=== PATIENT | male | born 1935 | race Caucasian/White ===

== ENCOUNTER 2019-02-05 07:22 | Day surgery (SDC) | payer OTHER ==
[2019-02-05] MEDS ORDERED: LR 1,000 ML IV ONE (07:47)
[2019-02-05] MEDS ORDERED: PROPOFOL/EMULSION 500 MG/50 ML BOTTLE IV ONE (09:18)
--- NOTE | 2019-02-05 09:19 | PDHPUP ---
History & Physical Update H&P update statement: This history and physical update is based on an assessment of the patient which was completed after admission or registration (within 24 hours), but prior to the surgery/procedure. Please see H and P from 01/24/19. Patient with iron deficiency anemia. Presents for EGD and Colon. Lungs Clear Cardiac normal s1s2 H&P update: H&P reviewed & patient examined, no change in patient's condition since H&P completed
--- NOTE | 2019-02-05 09:21 | PDANEPAE ---
ANE History of Present Illness 84 year old male for EGD and Colonoscopy for anemia. History of Hypertension. ANE Past Medical History - Cardiovascular History Hx Hypertension: Yes Hx Arrhythmias: No Hx Chest Pain: No Hx Coronary Artery / Peripheral Vascular Disease: No Hx CHF / Valvular Disease: No Hx Palpitations: No - Pulmonary History Hx COPD: No Hx Asthma/Reactive Airway Disease: No Hx Recent Upper Respiratory Infection: No Hx Oxygen in Use at Home: No Hx Sleep Apnea: No Sleep Apnea Screening Result - Last Documented: Positive - Neurologic History Hx Cerebrovascular Accident: No Hx Seizures: No Hx Dementia: No - Endocrine History Hx Diabetes: No - Renal History Hx Renal Disorders: Yes Renal History Comment: CKD stage 3 - Liver History Hx Hepatic Disorders: No - Neurological & Psychiatric Hx Hx Neurological and Psychiatric Disorders: No - Cancer History Hx Cancer: Yes Cancer History Comment: skin cancer - Congenital Disorder History Hx Congenital Disorders: No - GI History Hx Gastrointestinal Disorders: Yes Gastrointestinal History Comment: stomach discomfort on left side,. constipation - Other Health History Other Health History: dry skin. anemia. left side back missing teeth - Chronic Pain History Chronic Pain: Yes (lower back) - Surgical History Prior Surgeries: cataract sx 2018. egd 8 yrs ago ANE Review of Systems Review of systems is: negative Review of Systems: - Exercise capacity METS (RN): 4 METS ANE Patient History - Allergies Allergies/Adverse Reactions: No Known Allergies Allergy (Verified 01/25/19 15:26) - Home Medications Home Medications: Hydrochlorothiazide 01/25/19 [Last Taken 02/04/19] Lisinopril 01/25/19 [Last Taken 02/04/19] Simvastatin 01/25/19 [Last Taken 02/04/19] Desonide 0.05% Cream (*) 02/05/19 [Last Taken 02/04/19] Iron Chews 45 mg PO 02/05/19 [Last Taken 01/30/19] Tylenol 1,000 mg PO 02/05/19 [Last Taken 02/04/19] Vitamin D3 2,000 iunits PO 02/05/19 [Last Taken 01/30/19] - NPO status NPO Since - Liquids (Date): 02/05/19 NPO Since - Liquids (Time): 23:45 NPO Since - Solids (Date): 02/04/19 NPO Since - Solids (Time): 08:00 - Smoking Hx Smoking Status: Never smoked - Family Anes Hx Family Hx Anesthesia Complications: none ANE Labs/Vital Signs - Vital Signs Blood Pressure: 142/63 Heart Rate: 79 Respiratory Rate: 16 O2 Sat (%): 97 Height: 177.8 cm Weight: 68.039 kg ANE Physical Exam - Airway Neck exam: decreased ROM Mallampati Score: Class 2 Mouth exam: normal dental/mouth exam - Pulmonary Pulmonary: no respiratory distress - Cardiovascular Cardiovascular: regular rate and rhythym - ASA Status ASA Status: III ANE Anesthesia Plan Anesthesia Plan: MAC
--- NOTE | 2019-02-05 09:42 | GIREPORT ---
[facility] Surgical Services - Endoscopy Department Patient Name: Meek Samuel Procedure Date: 02/05/2019 9:21 AM Patient Type: Outpatient Attending MD/ ER Physician: Kehinde Valdez MD Procedure: Upper GI endoscopy Indications: Iron deficiency anemia Providers: Kehinde Valdez MD Medicines: Propofol per Anesthesia Complications: No immediate complications. Description of Procedure: After obtaining informed consent, the endoscope was passed under direct vision. Throughout the procedure, the patient's blood pressure, pulse, and oxygen saturations were monitored continuously. The Endoscope was intro duced through the mouth, and advanced to the second part of duodenum. The [facility] GI endoscopy was accomplished without difficulty. The patient tolerated th e procedure well. Findings: The examined esophagus was normal. The entire examined stomach was normal. The examined duodenum was normal. Biopsies for histology were taken wit h a cold forceps for evaluation of celiac disease. Estimated Blood Loss: Estimated blood loss: none. Post Op Diagnosis: - Normal esophagus. - Normal stomach. - Normal examined duodenum. Biopsied. Recommendation: - Await pathology results. - Perform a colonoscopy today. - Thank you for allowing me to participate in the care of your patient. Attending Participation: I personally performed the entire procedure. Kehinde Valdez MD Kehinde Valdez MD 02/05/2019 9:42:02 AM This report has been signed electronicallyStlizz Valdez MD Number of Addenda: 0 Note Initiated On: 02/05/2019 9:21 AM [email or web address]}
[2019-02-05] MEDS ORDERED: PHENYLEPHRINE HCL 100 MCG/ML SYR ONE (09:55)
[2019-02-05] MEDS ORDERED: fentaNYL 100 MCG/2 ML INJ IVP PRN (09:56)
[2019-02-05] MEDS ORDERED: LABETALOL HCL 5 MG/ML 20 ML MDV IVP PRN (09:56)
[2019-02-05] MEDS ORDERED: PHENYLEPHRINE HCL 100 MCG/ML SYR IVP PRN (09:56)
[2019-02-05] MEDS ORDERED: NALOXONE HCL 0.4 MG/ML INJ IVP PRN (09:56)
[2019-02-05] MEDS ORDERED: ONDANSETRON 4 MG/2 ML VIAL IVP PRN (09:56)
[2019-02-05] MEDS ORDERED: ACETAMINOPHEN 500 MG TAB PO PRN (09:56)
--- NOTE | 2019-02-05 10:05 | GIREPORT ---
[facility] Surgical Services - Endoscopy Department Patient Name: Meek Samuel Procedure Date: 02/05/2019 9:22 AM Patient Type: Outpatient Attending MD/ ER Physician: Kehinde Valdez MD Procedure: Colonoscopy Indications: Iron deficiency anemia Providers: Kehinde Valdez MD Medicines: Propofol per Anesthesia Complications: No immediate complications. Description of Procedure: After obtaining informed consent, the scope was passed under direct vis ion. Throughout the procedure, the patient's blood pressure, pulse, and oxyg en saturations were monitored continuously. The Colonoscope with irrigatio n channel was introduced through the anus and advanced to the cecum, identified by appendiceal orifice and ileocecal valve. The colonoscopy was somewhat difficult due to multiple diverticula in the colon. The patien t tolerated the procedure well. The quality of the bowel preparation was good. The ileocecal valve, appendiceal orifice, and rectum were photographed. Findings: Multiple small and large-mouthed diverticula were found in the sigmoid colon. A 10 mm polyp was found in the mid ascending colon. The polyp was sessi le. The polyp was removed with a hot snare. Resection and retrieval were complete. To prevent bleeding after the polypectomy, one hemostatic cli p was successfully placed. There was no bleeding during, or at the end, of th e procedure. The exam was otherwise without abnormality on direct and retroflexion v iews. Estimated Blood Loss: Estimated blood loss: none. Post Op Diagnosis: - Diverticulosis in the sigmoid colon. - One 10 mm polyp in the mid ascending colon, removed with a hot snare. Resected and retrieved. Clip was placed. - The examination was otherwise normal on direct and retroflexion views . Recommendation: - Patient has a contact number available for emergencies. The signs and symptoms of potential delayed complications were discussed with the pat ient. Return to normal activities tomorrow. Written discharge instructions we re provided to the patient. - High fiber diet. - Continue present medications. - Await pathology results. - No repeat colonoscopy due to age. - To visualize the small bowel, perform video capsule endoscopy. - Return to GI office after studies are complete. - Thank you for allowing me to participate in the care of your patient. Attending Participation: I personally performed the entire procedure. Kehinde Valdez MD Kehinde Valdez MD 02/05/2019 10:05:42 AM This report has been signed electronicallyKehinde Valdez MD Number of Addenda: 0 Note Initiated On: 02/05/2019 9:22 AM Total Procedure Duration Time 0 hours 14 minutes 51 seconds [email or web address]}
--- NOTE | 2019-02-05 10:19 | POSTANESTH ---
Post Anesthetic Evaluation Cardiovascular Status: Normal, Stable Respiratory Status: Normal, Stable Level of Consciousness/Mental Status: Mildly Sleepy, Arousable Pain Control: Adequate, Prn Tx Ordered Nausea/Vomiting Control: Adequate, Prn Tx Ordered Complications Possibly Related to Anesthesia: None Noted
[2019-02-05 11:09] VITALS: BP 157/68
== END 2019-02-05 11:03 | disposition home or self-care (01) ==
LOC: FSGY 07:22
PROVIDERS: ATTEND Internal Medicine Gastroenterology
PROC: 0DBK8ZX Excision of Ascending Colon, Via Natural or Artificial Opening Endoscopic, Diagnostic (ICD-10-PCS; principal; 2019-02-05 09:00)
DX: D12.2 Benign neoplasm of ascending colon (principal); K57.30 Diverticulosis of large intestine without perforation or abscess without bleeding; D50.9 Iron deficiency anemia, unspecified; E87.1 Hypo-osmolality and hyponatremia; R63.4 Abnormal weight loss; N18.3 Chronic kidney disease, stage 3 (moderate)
CPT/HCPCS: J2370; J2704

== ENCOUNTER 2019-03-05 14:09 | Day surgery (SDC) | payer OTHER ==
[2019-03-05] MEDS ORDERED: LR 1,000 ML IV ONE (14:57)
[2019-03-05 15:01] LABS: PLATELET COUNT 236 10^3/uL (150-400)
--- NOTE | 2019-03-05 15:43 | PDANEPAE ---
ANE Past Medical History - Cardiovascular History Hx Hypertension: Yes Hx Arrhythmias: No Hx Chest Pain: No Hx Coronary Artery / Peripheral Vascular Disease: No Hx CHF / Valvular Disease: No Hx Palpitations: No - Pulmonary History Hx COPD: No Hx Asthma/Reactive Airway Disease: No Hx Recent Upper Respiratory Infection: No Hx Oxygen in Use at Home: No Hx Sleep Apnea: No Sleep Apnea Screening Result - Last Documented: Positive - Neurologic History Hx Cerebrovascular Accident: No Hx Seizures: No Hx Dementia: No - Endocrine History Hx Diabetes: No - Renal History Hx Renal Disorders: No Renal History Comment: PT STATES NO KIDNEY DISEASE - Liver History Hx Hepatic Disorders: No Hepatic History Comment: POSS BILE DUCT OBSTRUCTION - Neurological & Psychiatric Hx Hx Neurological and Psychiatric Disorders: No - Cancer History Hx Cancer: No Cancer History Comment: PRECANCEROUS LESIONS - Congenital Disorder History Hx Congenital Disorders: No - GI History Hx Gastrointestinal Disorders: Yes Gastrointestinal History Comment: DISCOMFORT LEFT ABDOMINAL PAIN. constipation - Other Health History Other Health History: dry skin. anemia - TAKES IRON SUPPLEMENT. left side back missing teeth - Chronic Pain History Chronic Pain: Yes (lspinal stenosis wer back) - Surgical History Prior Surgeries: EGD 02-05-19. cataract sx 2018. egd 8 yrs ago ANE Review of Systems Review of Systems: - Exercise capacity METS (RN): 4 METS ANE Patient History - Allergies Allergies/Adverse Reactions: No Known Allergies Allergy (Verified 01/25/19 15:26) - Home Medications Home Medications: Hydrochlorothiazide 01/25/19 [Last Taken 03/04/19] Lisinopril 01/25/19 [Last Taken 03/05/19 08:00] Simvastatin 01/25/19 [Last Taken 03/04/19] Desonide 0.05% Cream (*) 02/05/19 [Last Taken 03/04/19] Iron Chews 45 mg PO 02/05/19 [Last Taken 03/02/19] Tylenol 1,000 mg PO 02/05/19 [Last Taken 03/04/19] Vitamin D3 2,000 iunits PO 02/05/19 [Last Taken 03/04/19] - NPO status NPO Since - Liquids (Date): 03/05/19 NPO Since - Liquids (Time): 08:00 NPO Since - Solids (Date): 03/04/19 NPO Since - Solids (Time): 18:00 - Smoking Hx Smoking Status: Never smoked - Family Anes Hx Family Hx Anesthesia Complications: none ANE Labs/Vital Signs - Labs Result Diagrams: 03/05/19 14:52 03/05/19 14:52 - Vital Signs Blood Pressure: 156/74 Heart Rate: 54 Respiratory Rate: 16 O2 Sat (%): 100 Height: 177.8 cm Weight: 65.771 kg
[2019-03-05] MEDS ORDERED: INDOMETHACIN 50 MG SUPP PR PRN (16:12)
--- NOTE | 2019-03-05 16:12 | PDGENHP ---
History & Physical Chief Complaint: LUQ abdominal pain/weight loss History of Present Illness: 84 year old male presents for evaluatin of weight loss and CBD dilation. He also c/o of LUQ abdominal pain. Pertinent Past, Social, Family History: PMHx: HTN, hypercholesterolemia Relevant Physical Exam: HEENT: anicteric. CV: RRR +s1s2. lungs: CTAB. Abd: soft, nt, + bs Cardiorespiratory Assessment: ASA 2
[2019-03-05] MEDS ORDERED: NS 500 ML IV SCH (16:15)
[2019-03-05] MEDS ORDERED: fentaNYL 250 MCG/5 ML INJ ONE (16:24)
[2019-03-05] MEDS ORDERED: PROPOFOL 200 MG/20 ML VIAL ONE (16:25)
[2019-03-05] MEDS ORDERED: INDOMETHACIN 50 MG SUPP PR ONE (17:00)
[2019-03-05] MEDS ORDERED: LIDOCAINE 2% 2 ML INJ ONE (17:22)
[2019-03-05] MEDS ORDERED: ONDANSETRON 4 MG/2 ML VIAL ONE (17:22)
[2019-03-05] MEDS ORDERED: ROCURONIUM 100 MG/10 ML VIAL ONE (17:22)
[2019-03-05] MEDS ORDERED: DEXAMETHASONE 4 MG/ML VIAL ONE (17:22)
[2019-03-05] MEDS ORDERED: SUGAMMADEX SODIUM 200 MG/2 ML VIAL IVP ONE (17:22)
--- NOTE | 2019-03-05 17:23 | GIREPORT ---
[facility] Surgical Services - Endoscopy Department Patient Name: Meek Samuel Procedure Date: 03/05/2019 4:15 PM Patient Type: Outpatient Attending MD/ ER Physician: Sergey Reyes MD Procedure: Upper EUS Indications: Abnormal abdominal/pelvic CT scan, Elevated liver enzymes, Abdominal pa in in the left upper quadrant, Weight loss Patient Profile: 84 year old male presents with CBD dilation, elevated LFTs (alkaline posphatase >400), LUQ abdominal pain, and significant weight loss. CT a dn MRI show no mass lesion. Providers: Sergey Reyes MD Medicines: General Anesthesia Complications: No immediate complications. Estimated blood loss: Minimal. Description of Procedure: After obtaining informed consent, the endoscope was passed under direct vision. Throughout the procedure, the patient's blood pressure, pulse, and oxygen saturations were monitored continuously. The Endosonoscope was introduced through the mouth, and advanced to the second part of duoden um. The Endoscope was introduced through the mouth, and advanced to the sec ond part of duodenum. The esophagus, stomach, and duodenum were visualized endosonographically. The upper EUS was accomplished without difficulty. The patient tolerated the procedure well. Findings: ENDOSCOPIC FINDING: : The examined esophagus was normal. Patchy mildly erythematous mucosa was found in the gastric body and in the gastric antrum. Biopsies were taken with a cold forceps for histology. A few small sessile polyps were found in the duodenal bulb. Biopsies we re taken with a cold forceps for histology. Biopsies for histology were taken with a cold forceps for evaluation of celiac disease. ENDOSONOGRAPHIC FINDING: : Pancreatic parenchymal abnormalities were noted in the entire pancreas. These consisted of hyperechoic foci. There was dilation in the common bile duct which measured up to 12 mm. 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 No masses were identified. No lymphadenopathy seen. Estimated Blood Loss: Estimated blood loss was minimal. Post Op Diagnosis: - Biopsies were taken with a cold forceps for evaluation of celiac dise ase. - Normal esophagus. - Erythematous mucosa in the gastric body and antrum. Biopsied. - A few duodenal polyps. Biopsied. - Pancreatic parenchymal abnormalities consisting of hyperechoic foci w ere noted in the entire pancreas. - There was dilation in the common bile duct which measured up to 11 mm . - Distal CBD stricture - There was no evidence of significant pathology in the visualized port ion of the liver. - Etiology? No mass lesion seen. Due to increased LFTs and possible CBD stricture, will proceed with ERCP. Recommendation: - Perform an ERCP today. - Continue present medications. - Await pathology results. - Thank you for allowing me to participate in the care of your patient. Attending Participation: I personally performed the entire procedure. Sergey Reyes MD Sergey Reyes MD 03/05/2019 5:22:55 PM This report has been signed electronicallySergey Reyes MD Number of Addenda: 0 Note Initiated On: 03/05/2019 4:15 PM [email or web address]
--- NOTE | 2019-03-05 17:30 | GIREPORT ---
[facility] Surgical Services - Endoscopy Department Patient Name: Meek Samuel Procedure Date: 03/05/2019 5:02 PM Patient Type: Outpatient Attending MD/ ER Physician: Sergey Reyes MD Procedure: ERCP Indications: Increased LFTs, CBD stricture, Abnormal imaging Patient Profile: 84 year old male presents for evaluation of increased LFTs, CBD strictu re and abnormal imaging. Providers: Sergey Reyes MD Medicines: General Anesthesia, Indomethacin 100 mg ME Complications: No immediate complications. Estimated blood loss: Minimal. Description of Procedure: After obtaining informed consent, the scope was passed under direct vis ion. Throughout the procedure, the patient's blood pressure, pulse, and oxyg en saturations were monitored continuously. The Duodenalscope was introduc ed through the mouth, and advanced to the duodenum and used to inject cont rast into the bile duct. The ERCP was accomplished without difficulty. The patient tolerated the procedure well. Findings: The freight air brake fitter film was normal. The esophagus was successfully intubated und er direct vision. The scope was advanced to a normal major papilla in the descending duodenum without detailed examination of the pharynx, larynx and associated structures, and upper GI tract. The upper GI tract was gross ly normal. A wire was passed into the biliary tree. The short-nosed tracti on sphincterotome was passed over the guidewire and the bile duct was then deeply cannulated. Contrast was injected. I personally interpreted the bile duct images. Ductal flow of contrast was adequate. Image quality was adequate. Contrast extended to the entire biliary tree. The main bile d uct was moderately dilated. The largest diameter was 12 mm. A 10 mm biliary sphincterotomy was made with a traction (standard) sphincterotome using pure cut current. The sphincterotomy oozed blood. The biliary tree was swept with a 15 mm balloon starting at the bifurcation. Sludge was swept from the duct. Estimated Blood Loss: Estimated blood loss was minimal. Post Op Diagnosis: - The entire main bile duct was moderately dilated. - A biliary sphincterotomy was performed. - No significant stricture noted. - The biliary tree was swept and sludge was found. Recommendation: - Discharge patient to home (with escort). - Continue present medications. - Clear liquid diet. - Check PSA - Follow up in office in 3 weeks. - Thank you for allowing me to participate in the care of your patient. Attending Participation: I personally performed the entire procedure. Sergey Reyes MD Sergey Reyes MD 03/05/2019 5:30:33 PM This report has been signed electronicallySergey Reyes MD Number of Addenda: 0 Note Initiated On: 03/05/2019 5:02 PM [email or web address]
[2019-03-05] MEDS ORDERED: NALOXONE HCL 0.4 MG/ML INJ IVP PRN ×2 (17:43→17:55)
[2019-03-05] MEDS ORDERED: fentaNYL 100 MCG/2 ML INJ IVP PRN (17:43)
[2019-03-05] MEDS ORDERED: ONDANSETRON 4 MG/2 ML VIAL IVP PRN (17:43)
[2019-03-05] MEDS ORDERED: LABETALOL HCL 5 MG/ML 20 ML MDV IVP PRN (17:43)
--- NOTE | 2019-03-05 17:43 | POSTANESTH ---
Post Anesthetic Evaluation Cardiovascular Status: Normal, Stable Respiratory Status: Normal, Stable Level of Consciousness/Mental Status: Can Participate in Eval Pain Control: Adequate, Prn Tx Ordered Nausea/Vomiting Control: Adequate, Prn Tx Ordered Complications Possibly Related to Anesthesia: None Noted
[2019-03-05] MEDS ORDERED: LABETALOL HCL 5 MG/ML 20 ML MDV ONE (17:49)
[2019-03-05] MEDS ORDERED: hydrALAZINE 20 MG/ML VIAL ONE (17:58)
[2019-03-05] MEDS: hydrALAZINE 20 MG/ML VIAL IVP PRN ×3 (18:01→18:35)
[2019-03-05 19:14] VITALS: BP 187/81
== END 2019-03-05 19:21 | disposition home or self-care (01) ==
LOC: FSGY 14:09
PROVIDERS: ATTEND Internal Medicine Gastroenterology
DX: K83.1 Obstruction of bile duct (principal); R53.83 Other fatigue; R42 Dizziness and giddiness; R63.4 Abnormal weight loss; R00.1 Bradycardia, unspecified; I12.9 Hypertensive chronic kidney disease with stage 1 through stage 4 chronic kidney disease, or unspecified chronic kidney disease; N40.0 Benign prostatic hyperplasia without lower urinary tract symptoms; N18.3 Chronic kidney disease, stage 3 (moderate); E78.5 Hyperlipidemia, unspecified; D50.9 Iron deficiency anemia, unspecified
CPT/HCPCS: J0360; J1100; J2405; J2704; J3010